=== PATIENT | female | born 2000 | race Caucasian/White ===

== ENCOUNTER 2024-01-31 10:06 | Outpatient (REF) | payer BC, SELFPAY ==
[2024-01-31 10:23] LABS: % Basophils 0.6 % (0-2); % Eosinophils 2.2 % (0-6); % Immature Granulocytes 0.5 % (0-0.5); % Lymphocytes 41.9 % (20.5-51.1); % Neutrophils 40.8 % (42.2-75.2); Absolute Eosinophils 0.1 10^3/uL (0-0.7); Absolute Lymphocytes 2.6 10^3/uL (1.2-3.4); Absolute Monocytes 0.9 10^3/uL (0.1-0.6); Absolute Neutrophils 2.6 10^3/uL (1.4-6.5); Hematocrit 36.8 % (37.0-47.0); Hemoglobin 12.4 g/dL (12.0-16.0); Mean Corp Hgb Conc. 33.7 g/dL (33.0-37.0); Mean Corpuscular Hgb 31.6 pg (27.0-31.0); Mean Corpuscular Volume 93.9 fL (81.0-99.0); Mean Platelet Volume 9.2 fL (7.4-10.4); Nucleated Red Blood Cells % 0 %; Platelet Count 355 10^3/uL (130-400); Red Blood Cell Count 3.92 10^6/uL (4.20-5.40); Red Cell Dist. Width 14.4 % (11.5-14.5); White Blood Cell Count 6.3 10^3/uL (4.8-10.8)
[2024-01-31 10:33] LABS: PT 13.2 Sec (11.4-14.6)
[2024-01-31 12:30] VITALS: BP 102/63
[2024-01-31 13:30] VITALS: BP 104/57
== END 2024-01-31 14:00 | disposition home or self-care (01) ==
LOC: RAD 10:06
PROVIDERS: ATTENDING PHYSICIAN Psychiatry & Neurology Clinical Neurophysiology; FAMILY PHYSICIAN Internal Medicine
DX: G95.9 Disease of spinal cord, unspecified (principal); Z01.812 Encounter for preprocedural laboratory examination; Z01.818 Encounter for other preprocedural examination
CPT/HCPCS: 36415; 62303; 72128; 85025; 85610